=== PATIENT | male | born 1965 | race Caucasian/White ===

== ENCOUNTER → 2020-02-09 11:25 | Outpatient (CLI) | payer OTHER, SELFPAY ==
[2020-02-11 18:22] LABS: COVID19 Sendout Not Detected (Not Detect)
== END ==
PROVIDERS: Visit Provider Nurse Practitioner
DX: Z11.59 Encounter for screening for other viral diseases (principal)
CPT/HCPCS: 87635

== ENCOUNTER → 2020-12-16 18:09 | Outpatient (CLI) | payer OTHER, SELFPAY ==
--- NOTE | 2020-12-16 18:11 | DI.RAD.S_ITS ---
PROCEDURE: XR SHOULDER RT MIN 2V INDICATIONS: R shoulder pain TECHNIQUE: 3 views of the shoulder were acquired. COMPARISON: None. FINDINGS: Bones: No fractures or dislocations. No suspicious bony lesions. Visualized ribs appear intact. The right acromioclavicular joint has degenerative changes. Soft tissues: No suspicious soft tissue calcifications. IMPRESSION: Degenerative changes of the right acromioclavicular joint. Dictated by: Cornelius Cordova M.D. on 12/16/2020 at 18:51 Approved by: Cornelius Corodva M.D. on 12/16/2020 at 18:52
== END ==
PROVIDERS: Referring Provider Physician Assistant; Visit Provider Physician Assistant
DX: M25.511 Pain in right shoulder (principal)
CPT/HCPCS: 73030